=== PATIENT | female | born 1955 | race Caucasian/White ===

== ENCOUNTER → 2019-10-01 09:11 | Outpatient (CLI) | payer MEDICARE, OTHER ==
[2013-07-09 07:43] VITALS: BMI 33.9
[~2019-10-01 09:11] MED LIST: ADVIL200 MG PO; ASPIRIN325 MG PO; DYAZIDE 37.5/251 CAP PO; PRILOSEC20 MG PO; VIVELLE-DO1 PATCH.B2 TD
== END | disposition home or self-care (01) ==
LOC: D.HCCARDIO 09:11
PROVIDERS: ATTEND Internal Medicine Cardiovascular Disease
DX: I20.9 Angina pectoris, unspecified (principal)

== ENCOUNTER → 2020-01-21 17:24 | Outpatient (CLI) | payer MEDICARE, OTHER ==
[2013-07-09 07:43] VITALS: BMI 33.9
[2020-01-21 18:33] LABS: CHOL - HDL RATIO 2.2 ratio (2.3-4.1)
== END | disposition home or self-care (01) ==
LOC: D.LABREF 17:24
PROVIDERS: ATTEND Internal Medicine Cardiovascular Disease
DX: E78.5 Hyperlipidemia, unspecified (principal)

== ENCOUNTER → 2020-05-19 19:49 | Outpatient (CLI) | payer MEDICARE, OTHER ==
[2013-07-09 07:43] VITALS: BMI 33.9
[2020-05-19 22:49] LABS: CALC OSMOLALITY 283 mosm/kg (275-300); CALCIUM 8.7 mg/dL (8.5-10.1); CARBON DIOXIDE 27.7 mmol/L (21.0-32.0); CHLORIDE - SERUM 105 mmol/L (98-107); CREATININE - SERUM 0.7 mg/dL (0.6-1.3); GLUCOSE 83 mg/dL (74-106); POTASSIUM - SERUM 4.2 mmol/L (3.5-5.1); SODIUM 141 mmol/L (136-145); UREA NITROGEN 24 mg/dL (7-18); eGFR NON AFRICAN AMERICAN 89 mL/min (90-120)
== END | disposition home or self-care (01) ==
LOC: D.LABREF 19:49
PROVIDERS: ATTEND Nurse Practitioner Adult Health
DX: I10 Essential (primary) hypertension (principal)

== ENCOUNTER → 2020-07-14 18:50 | Outpatient (CLI) | payer MEDICARE, OTHER ==
[2013-07-09 07:43] VITALS: BMI 33.9
[2020-07-14 19:30] LABS: CHOL - HDL RATIO 2.1 ratio (2.3-4.1); LDL-HDL RATIO 0.9 ratio (1.5-3.5)
== END | disposition home or self-care (01) ==
LOC: D.LABREF 18:50
PROVIDERS: ATTEND Nurse Practitioner Adult Health
DX: E78.5 Hyperlipidemia, unspecified (principal)

== ENCOUNTER → 2021-01-19 18:09 | Outpatient (CLI) | payer MEDICARE, OTHER ==
[2013-07-09 07:43] VITALS: BMI 33.9
[2021-01-19 19:37] LABS: CHOL - HDL RATIO 2.5 ratio (2.3-4.1); LDL-HDL RATIO 1.3 ratio (1.5-3.5)
== END | disposition home or self-care (01) ==
LOC: D.LABREF 18:09
DX: E78.5 Hyperlipidemia, unspecified (principal)

== ENCOUNTER → 2021-03-30 20:05 | Outpatient (CLI) | payer MEDICARE, OTHER ==
[2013-07-09 07:43] VITALS: BMI 33.9
[2021-03-30 20:52] LABS: CHOL - HDL RATIO 2.6 ratio (2.3-4.1); LDL-HDL RATIO 1.4 ratio (1.5-3.5)
== END | disposition home or self-care (01) ==
LOC: D.LABREF 20:05
PROVIDERS: ATTEND Nurse Practitioner
DX: E78.5 Hyperlipidemia, unspecified (principal)